=== PATIENT | male | born 1950 | race Caucasian/White ===

== ENCOUNTER 2018-11-16 17:24 | Emergency (ER) | payer OTHER ==
[~2018-11-16] VITALS: Ht 188 cm; Wt 127.0 kg
[~2018-11-16 17:24] MED LIST: ACTOS15 MG PO; ASPIRIN81 M2 PO; BYETTA PEN 51 PENIN1 SUBQ; FLEXERIL PO; GLUMETZA500 PO; HYDROCODON-ACE1 EAC5 PO; LANTUS SUBQ; LIPITOR20 MG PO; METAXALONE800 MG PO; NEURONTIN 300M300 M2 PO; NEURONTIN600 MG PO; NITROGLYCERIN0.4 MG SL; NOVOLOG100 UNIT/1; PRINIVIL10 MG PO; PROTONIX40 M2 PO; PULMICORT0.5 MG/2 M INH; VENTOLIN HFA 1818 GM INH
[2018-11-16] MEDS ORDERED: PROAIR HFA8.5 GM INH (17:36)
[2018-11-16] MEDS ORDERED: [UNRECOGNIZED DRUG - OTHER] PO (17:39)
[2018-11-16] MEDS ORDERED: ALEVE220 MG PO (17:41)
[2018-11-16 18:42] VITALS: BP 140/68
== END 2018-11-16 18:52 | disposition home or self-care (01) ==
LOC: ER 17:24
DX: F41.9 Anxiety disorder, unspecified (principal); F32.9 Major depressive disorder, single episode, unspecified; I10 Essential (primary) hypertension; E78.00 Pure hypercholesterolemia, unspecified; M19.90 Unspecified osteoarthritis, unspecified site; J45.909 Unspecified asthma, uncomplicated; G47.30 Sleep apnea, unspecified; E11.42 Type 2 diabetes mellitus with diabetic polyneuropathy; K21.9 Gastro-esophageal reflux disease without esophagitis; Z79.4 Long term (current) use of insulin; Z88.0 Allergy status to penicillin; Z87.01 Personal history of pneumonia (recurrent)